=== PATIENT | female | born 1965 | race Caucasian/White ===

== ENCOUNTER 2017-09-13 05:44 | Inpatient (IN) | payer BC, OTHER ==
[~2017-09-13] VITALS: Ht 157.5 cm; Wt 91.2 kg
[~2017-09-13 05:44] MED LIST: No meds per pt.; [UNRECOGNIZED DRUG - OTHER] PO
[2017-09-13] MEDS ORDERED: VANCOMYCIN PMX 1GM/200ML 200 ML IV STA (05:55)
[2017-09-13] MEDS ORDERED: PROPOFOL 10 MG/ML, 20ML ONE (06:14)
[2017-09-13] MEDS ORDERED: MIDAZOLAM 1 MG/ML, 2ML ONE (06:14)
[2017-09-13] MEDS ORDERED: ROCURONIUM 10 MG/ML,10ML ONE (06:14)
[2017-09-13] MEDS ORDERED: ROPIvacaine/PF 0.5%, 30 ML ONE (06:14)
[2017-09-13] MEDS ORDERED: FENTANYL PF 250 MCG/5ML ONE (06:14)
[2017-09-13] MEDS ORDERED: CEFAZOLIN 1,000 MG ONE ×2 (06:14)
[2017-09-13] MEDS ORDERED: LACTATED RINGERS 1,000 ML IV SCH (06:18)
[2017-09-13] MEDS ORDERED: CLINDAMYCIN 150 MG/ML, 6ML ONE (06:19)
[2017-09-13] MEDS ORDERED: TRANEXAMIC ACID 100 MG/ML, 10ML ONE (06:20)
[2017-09-13 06:21] VITALS: BP 151/90
[2017-09-13 06:38] LABS: HCG UR LOT HCG706132
[2017-09-13 06:51] LABS: HCG UR OBC PASS
[2017-09-13] MEDS ORDERED: DEXAMETHASONE 4 MG/ML, 1ML ONE (06:54)
[2017-09-13] MEDS ORDERED: ZOLPIDEM 5MG TABLET PO PRN (07:00)
[2017-09-13] MEDS ORDERED: DIPHENHYDRAMINE 50 MG CAPSULE PO PRN (07:00)
[2017-09-13] MEDS ORDERED: ACETAMINOPHEN 650 MG/20.3 ML UDC PO PRN (07:00)
[2017-09-13] MEDS ORDERED: LORazepam 1MG TABLET PO PRN (07:00)
[2017-09-13] MEDS ORDERED: OXYcodone IR 5MG TABLET PO SCH (07:00)
[2017-09-13] MEDS ORDERED: MAGNESIUM HYDROXIDE 8%, 30ML UDC PO PRN (07:00)
[2017-09-13] MEDS ORDERED: BISACODYL 10 MG SUPP PR PRN (07:00)
[2017-09-13] MEDS ORDERED: PROMETHAZINE 25 MG/ML, 1ML IM PRN (07:00)
[2017-09-13] MEDS ORDERED: SENNA/DOCUSATE TABLET PO PRN (07:00)
[2017-09-13] MEDS ORDERED: ONDANSETRON 4 MG TABLET PO PRN (07:00)
[2017-09-13] MEDS ORDERED: DIAZEPAM 5 MG TABLET PO PRN (07:00)
[2017-09-13] MEDS ORDERED: PROMETHAZINE 12.5 MG SUPP PR PRN (07:00)
[2017-09-13] MEDS ORDERED: LABETALOL 5MG/ML, 20ML IV PRN (07:30)
[2017-09-13] MEDS ORDERED: MEPERIDINE/PF 25MG/0.5ML IVPush PRN (07:30)
[2017-09-13] MEDS ORDERED: ONDANSETRON 2MG/ML, 2ML IVPush PRN (07:30)
[2017-09-13] MEDS ORDERED: METOPROLOL 1 MG/ML, 5ML IV PRN (07:30)
[2017-09-13] MEDS ORDERED: ACETAMINOPHEN 325 MG TABLET PO PRN (07:30)
[2017-09-13] MEDS ORDERED: ALBUTEROL SULFATE 2.5 MG/3 ML NPPB PRN (07:30)
[2017-09-13] MEDS ORDERED: PROMETHAZINE 25 MG/ML, 1ML IV PRN (07:30)
[2017-09-13] MEDS ORDERED: OXYcodone 5 MG/5 ML ORAL.SOL UDC PO PRN (07:30)
[2017-09-13] MEDS ORDERED: hydrALAzine 20 MG/ML, 1ML IV PRN (07:30)
[2017-09-13] MEDS ORDERED: EPHEDRINE 50 MG/ML, 1ML IVPush PRN (07:30)
[2017-09-13] MEDS ORDERED: NEOSTIGMINE 1 MG/ML, 10ML ONE (08:14)
[2017-09-13] MEDS ORDERED: GLYCOPYRROLATE 0.2MG/1ML, 5ML ONE (08:14)
[2017-09-13] MEDS ORDERED: ONDANSETRON 2MG/ML, 2ML ONE (08:14)
[2017-09-13] MEDS ORDERED: methylPREDNISolone *ACETATE* 40 MG/ML ONE ×2 (08:26→08:37)
[2017-09-13] MEDS ORDERED: BUPIVACAINE/PF 0.25% ONE (08:37)
[2017-09-13] MEDS: HYDROmorphone 1 MG/ML, 1ML IV PRN ×3 (08:40→09:03)
[2017-09-13] MEDS ORDERED: ACETAMINOPHEN 650 MG/20.3 ML UDC ONE (08:41)
[2017-09-13] MEDS ORDERED: HYDROmorphone 2 MG/ML, 1ML ONE (08:41)
[2017-09-13] MEDS ORDERED: OXYcodone 5 MG/5 ML ORAL.SOL UDC ONE (08:41)
[2017-09-13] MEDS ORDERED: FENTANYL PF 100 MCG/2ML ONE (08:41)
[2017-09-13] MEDS: FENTANYL PF 100 MCG/2ML IV PRN ×2 (08:55→09:03)
[2017-09-13] MEDS ORDERED: HYDROcodone/APAP 10/325 MG TABLET PO SCH ×2 (09:00→20:00)
[2017-09-13] MEDS ORDERED: DIAZEPAM 5 MG/ML, 2ML IV ONE (09:30)
[2017-09-13] MEDS: HYDROcodone/APAP 10/325 MG TABLET PO SCH ×4 (12:03→21:34)
[2017-09-13] MEDS: DOCUSATE 100 MG CAPSULE PO SCH ×2 (12:03→21:34)
[2017-09-13] MEDS: MULTIVITAMINS/MINERALS TABLET PO SCH (12:04)
[2017-09-13] MEDS: morphine SULFATE 10 MG/ML, 1ML IV PRN ×2 (12:51→22:48)
[2017-09-13] MEDS ORDERED: CEFAZOLIN PMX 2GM/50ML 50 ML IVPB SCH (14:00)
[2017-09-13 14:30] VITALS: BP 114/67
[2017-09-13] MEDS: D5%-0.45% NACL 1,000 ML IV SCH (14:37)
[2017-09-13] MEDS: ASPIRIN 325 MG TABLET EC PO SCH (17:25)
[2017-09-13 21:44] VITALS: BP 121/71
[2017-09-13] MEDS ORDERED: CEFAZOLIN 2,000 MG in DEXTROSE 5% 50 ML IVPB SCH (22:00)
[2017-09-14] MEDS ORDERED: ONDANSETRON 2MG/ML, 2ML ONE (00:55)
[2017-09-14 00:59] VITALS: BP 129/68
[2017-09-14] MEDS: D5%-0.45% NACL 1,000 ML IV SCH ×2 (01:03→10:00)
[2017-09-14] MEDS: HYDROcodone/APAP 10/325 MG TABLET PO SCH ×4 (01:03→13:24)
[2017-09-14] MEDS: ASPIRIN 325 MG TABLET EC PO SCH (05:48)
[2017-09-14] MEDS: KETOROLAC 30 MG/1 ML IV SCH ×2 (06:18→13:38)
[2017-09-14 08:47] VITALS: BP 116/68
[2017-09-14] MEDS: DOCUSATE 100 MG CAPSULE PO SCH (09:29)
[2017-09-14] MEDS: MULTIVITAMINS/MINERALS TABLET PO SCH (09:30)
[2017-09-14 13:42] VITALS: BP 124/77
== END 2017-09-14 14:51 | disposition home or self-care (01) | DRG 470 ==
LOC: ORIP 05:44 → 4NOR 10:48 → DCLOUNGE 09-14 14:34
PROVIDERS: ADMIT Orthopaedic Surgery; ATTEND Orthopaedic Surgery
PROC: 0SRD069 Replacement of Left Knee Joint with Oxidized Zirconium on Polyethylene Synthetic Substitute, Cemented, Open Approach (ICD-10-PCS; principal; 2017-09-13 07:00)
DX: M17.12 Unilateral primary osteoarthritis, left knee (principal); E66.01 Morbid (severe) obesity due to excess calories; Z68.38 Body mass index [BMI] 38.0-38.9, adult
CPT/HCPCS: 81025; C1713; J0690; J1100; J1170; J1885; J2250; J2405; J2550; J2704; J2710; J2795; J3010; J3360; J3370; J3490; Q0162; C1776; J1030; J2270; J7120